=== PATIENT | male | born 1995 | race Caucasian/White ===

== ENCOUNTER 2024-04-27 21:13 | Emergency (ER) | payer OTHER, SELFPAY ==
[2024-04-27 21:21] VITALS: BP 125/74; PULSE 79; RESP 18; TEMP 36.7; O2SAT 98; BMI 30.2
[2024-04-27] MEDS: ONDANSETRON 4 MG/2 ML INJ IV (22:24)
[2024-04-27 22:31] LABS: Add Manual Diff / Slide Review YES; Hematocrit 45.3 % (41-53); Hemoglobin 15.6 g/dL (13.5-17.5); Mean Corpuscular HGB Conc 34.3 % (30-36); Mean Corpuscular Volume 84.5 fL (80-100); Platelet Count 284 X10^3/uL (150-400); Red Blood Cell Count 5.37 X10^6/uL (4.5-5.9); Red Cell Distribution Width 13.1 % (11.6-14.8); White Blood Cell Count 9.5 X10^3/uL (4.5-11.0)
[2024-04-27 22:35] LABS: Alanine Aminotransferase 107 IU/L (<50); Albumin 4.6 g/dL (3.5-5.0); Albumin Globulin Ratio 1.2 (1.0-2.8); Alkaline Phosphatase 76 U/L (38-126); Aspartate Aminotransferase 50 IU/L (17-59); BUN Creatinine Ratio 14.6 (6-22); Bilirubin Total 0.9 mg/dL (0.2-1.3); Blood Urea Nitrogen 15 mg/dL (9-20); Calcium 9.8 mg/dL (8.4-10.2); Carbon Dioxide 25 mmol/L (22-32); Chloride 101 mmol/L (98-107); Estimated Glomerular Filt Rate > 60 mL/min (>60); Globulin 3.7 g/dL (1.7-4.1); Glucose 117 mg/dL (70-100); HEMOLYSIS < 15 (0-50); Lipase 50 U/L (23-300); Potassium 3.9 mmol/L (3.4-5.1); Sodium 135 mmol/L (137-145); Total Protein 8.3 g/dL (6.3-8.2)
[2024-04-27 22:44] LABS: Amorphous Sediment Urine 2+; Bacteria Urine Moderate (10-30); Culture Indicated Urine Cult Not Indicated; Granular Casts Urine 0-1/LPF; Mucus Urine 3+ (Negative); RBC Urine 0-1/HPF (0-5/HPF); Squamous Epithelial Cell Urine 0-1 /HPF (0-5/HPF); Urine Volume 10mL (spun); WBC Urine 0-1/HPF (0-5/HPF)
[2024-04-27 22:54] LABS: Neutrophils Absolute Manual 2565 /uL (3000-5900); RBC Morphology Normal Morphology; Reactive Lymphocytes 1+; Total Cells Counted 100
[2024-04-27 23:30] VITALS: BP 135/76; PULSE 75; RESP 11; O2SAT 96
[2024-04-28] VITALS (10 sets, daily range): BP systolic 112–131; BP diastolic 66–75; PULSE 60–80; RESP 12–16; O2SAT 95–99
--- NOTE | 2024-04-28 01:21 | ED_ITS ---
HPI - Abdominal Pain General Chief Complaint: Abdominal Pain Stated Complaint: Abd Pain/irregular bowel movements/loss of humphrey Time Seen by Provider: 04/27/24 23:32 Source: patient Mode of arrival: Ambulatory History of Present Illness HPI narrative: 29-year-old male with no prior history abdominal surgeries, complains of supraumbilical area abdominal pain since 8:00 p.m. last night, seems to be increasing, some nausea without emesis, no loose stools, no black or red stools. No history of prior peptic ulcers, no prior upper endoscopies. He has not known to have any gallbladder problems. Denies injury trauma new activities. No history of chronic or recent abdominal problems. Last bowel movement yesterday was unremarkable. No close contact to persons with similar symptoms. Related Data Previous Rx's Medication Instructions Recorded omeprazole 20 mg capsule,delayed 20 mg PO DAILY upper abdominal 04/28/24 release pain 30 days #30 caps Allergies Allergy/AdvReac Type Severity Reaction Status Date / Time No Known Drug Allergies Allergy Verified 04/27/24 23:02 Review of Systems Review of Systems Narrative: per HPI Patient History Social History Smoking Status: Former smoker Smoking Status: Former smoker tobacco type: cigarettes alcohol intake frequency: a few times a week Alcohol type: beer Substance Use Type: does not use Exam Narrative Exam Narrative: GENERAL: Well-developed patient, in mild distress. HEAD: Atraumatic. Normocephalic. EYES: Pupils equal round and reactive. Extraocular motions intact. No scleral icterus. No injection or drainage. ENT: Nose without bleeding, purulent drainage. Throat without erythema, tonsillar hypertrophy or exudate. Airway patent. NECK: Trachea midline. Non tender CARDIOVASCULAR: Regular rate and rhythm without murmurs, gallops, or rubs. RESPIRATORY: Clear to auscultation. Breath sounds equal bilaterally. No wheezes, rales, or rhonchi. GASTROINTESTINAL: Abdomen with some epigastric and supraumbilical tenderness, no ventral hernia obvious, no guarding or rebound. No obvious fluid wave. No tenderness right lower quadrant right middle quadrant. No tenderness right upper quadrant. No tenderness left lower quadrant. Bowel tones unremarkable EXTREMITIES: No edema or joint tenderness. BACK: Nontender without deformity or crepitance. No flank tenderness. NEURO: AOx3. SKIN: No rash or erythema of visible areas Initial Vital Signs Initial Vital Signs: Vital Signs Temperature 98.1 F 04/27/24 21:21 Pulse Rate 79 04/27/24 21:21 Respiratory Rate 18 04/27/24 21:21 Blood Pressure 125/74 04/27/24 21:21 Pulse Oximetry 98 04/27/24 21:21 Oxygen Delivery Method Room Air 04/27/24 21:21 Course Orders Ordered: ED Orders 04/27/24 22:15 Complete Blood Count AUTO DIFF Stat Comprehensive Metabolic Panel Stat Lipase Stat 04/27/24 22:25 Urine Microscopic Stat 04/28/24 01:29 CT abdomen pelvis w con Stat Discontinued Medications Famotidine (Famotidine 20 Mg/2 Ml Vial) 20 mg IV NOW JORJE Last Admin: 04/28/24 01:33 Dose: 20 mg Documented By: PATTI Ondansetron HCl (Ondansetron 4 Mg/2 Ml Inj) 4 mg IV NOW PRN PRN Reason: Nausea And Vomiting Last Admin: 04/27/24 22:24 Dose: 4 mg Documented By: SURY Ondansetron HCl (Ondansetron 4 Mg Odt) 4 mg PO NOW PRN PRN Reason: Nausea And Vomiting Vital Signs Vital signs: Vital Signs - 8 hr 04/27/24 23:30 04/28/24 00:00 04/28/24 00:30 Pulse Rate 75 77 74 Respiratory Rate 11 L 12 16 Blood Pressure 135/76 130/75 131/74 Pulse Oximetry 96 99 99 Oxygen Delivery Method Room Air Room Air Room Air 04/28/24 01:00 04/28/24 01:30 04/28/24 02:00 Pulse Rate 72 74 80 Respiratory Rate 16 13 15 Blood Pressure 130/72 131/74 130/74 Pulse Oximetry 95 98 97 Oxygen Delivery Method Room Air Room Air Room Air 04/28/24 02:30 04/28/24 03:00 04/28/24 03:30 Pulse Rate 70 72 62 Respiratory Rate 13 13 Blood Pressure 126/74 118/66 114/71 Pulse Oximetry 98 97 96 Oxygen Delivery Method Room Air Room Air 04/28/24 04:00 04/28/24 04:30 Pulse Rate 60 65 Respiratory Rate 12 16 Blood Pressure 115/71 112/68 Pulse Oximetry 96 96 Oxygen Delivery Method Room Air Room Air MDM - Abdominal Pain Lab Data Attestation: I reviewed the patient's lab results. 04/27/24 22:15 04/27/24 22:15 Labs: Lab Results 04/27/24 04/27/24 Range/Units 22:15 22:25 WBC 9.5 (4.5-11.0) X10^3/uL RBC 5.37 (4.5-5.9) X10^6/uL Hgb 15.6 (13.5-17.5) g/dL Hct 45.3 (41-53) % MCV 84.5 (80-100) fL MCH 29.0 (26-34) PG MCHC 34.3 (30-36) % RDW 13.1 (11.6-14.8) % Plt Count 284 (150-400) X10^3/uL Neut % (Auto) Not Reportable Lymph % (Auto) Not Reportable [place] % (Auto) Not Reportable Eos % (Auto) Not Reportable Baso % (Auto) Not Reportable Lymph # (Auto) Not Reportable [place] # (Auto) Not Reportable Baso # (Auto) Not Reportable Total Counted 100 Seg Neutrophils % 27.0 L (38-70) % Lymphocytes % (Manual) 67.0 H (25-45) % Monocytes % (Manual) 6.0 (2-11) % Neutrophils # (Manual) 2565 L (6132-2924) /uL Reactive Lymphocytes 1+ H RBC Morphology Normal morphology Sodium 135 L (137-145) mmol/L Potassium 3.9 (3.4-5.1) mmol/L Chloride 101 (98-107) mmol/L Carbon Dioxide 25 (22-32) mmol/L BUN 15 (9-20) mg/dL Creatinine 1.03 (0.66-1.25) mg/dL Estimated GFR > 60 (>60) mL/min BUN/Creatinine Ratio 14.6 (6-22) Glucose 117 H (70-100) mg/dL Calcium 9.8 (8.4-10.2) mg/dL Total Bilirubin 0.9 (0.2-1.3) mg/dL AST 50 (17-59) IU/L ALT 107 H (<50) IU/L Alkaline Phosphatase 76 (38-126) U/L Total Protein 8.3 H (6.3-8.2) g/dL Albumin 4.6 (3.5-5.0) g/dL Globulin 3.7 (1.7-4.1) g/dL Albumin/Globulin Ratio 1.2 (1.0-2.8) Lipase 50 (23-300) U/L Urine RBC 0-1/hpf (0-5/HPF) Urine WBC 0-1/hpf (0-5/HPF) Ur Squamous Epith Cells 0-1 /hpf (0-5/HPF) Amorphous Sediment 2+ Urine Bacteria Moderate (10-30) H (None) Granular Casts 0-1/lpf (None) Urine Mucus 3+ H (Negative) Ur Culture Indicated? Cult not indicated Vol Urine Centrifuged 10ml (spun) Point of care testing: Urine Dip Bedside Urine Glucose Negative Bedside Urine Bilirubin - Negative Bedside Urine Ketone +/- 5 Urine Specific [place] 1.025 Bedside Urine Occult Blood - Negative Bedside Urine pH 6.0 Bedside Urine Protein +/- 15 Bedside Urine Urobilinogen - Negative Bedside Urine Nitrite - Negative Bedside Urine Leukocytes - Negative Esterase Imaging Data CT scan - abdomen/pelvis: Radiologist's Impression: [address] [address] [address] Scan Report Signed Patient: Cody Limon MR#: [id number] : 1995 Acct:[id number] Age/Sex: 29 / M Date of Service: 04/28/24 Loc: ED Accession Number: [id number] Procedure: CT abdomen pelvis w con Ordering Provider: Jacob Jean MD PROCEDURE: CT ABDOMEN PELVIS W CON INDICATIONS: abd pain TECHNIQUE: After the administration of intravenous contrast, axial sections acquired from the lung bases to the pubic symphysis. Coronal and sagittal reformats were performed. For radiation dose reduction, the following was used: automated exposure control, adjustment of mA and/or kV according to patient size. COMPARISON: None. FINDINGS: Image quality: Diagnostic. Lower Chest: No significant findings. ABDOMEN: Liver: No solid mass. Gallbladder: No radiopaque gallstones or wall thickening. Biliary ducts: No biliary dilation. Pancreas: No ductal dilation. Spleen: Size is within normal limits. Adrenal Glands: No adrenal nodules. Kidneys and Ureters: No hydronephrosis. No solid mass. No complex renal cystic lesion which requires follow up. Stomach and Bowel: Normal colonic caliber, without significant wall thickening. There is abnormal small bowel dilatation through the upper, mid and lower abdomen/pelvis. Etiology is not identified. Peritoneum: Slight the posterior pelvic abnormal intraperitoneal fluid. No free air. Ventral Wall: No significant ventral hernia. Abdominal Nodes: No retroperitoneal or mesenteric adenopathy by size criteria. Vessels: Aorta and inferior vena cava are normal in size. PELVIS: Pelvic Organs: Unremarkable. Bladder: No bladder wall thickening, accounting for underdistention. Pelvic Nodes: No enlarged lymph nodes. Miscellaneous: No inguinal hernias are seen. Bones: No aggressive osseous abnormality. IMPRESSION: Abnormal moderate small bowel dilatation through the abdomen and pelvis. Intussusception or volvulus is not seen nor is a mass identified. In such circumstances at acquired or congenital adhesion is the most common etiology. No pneumatosis involving the small bowel wall is found. Slight free fluid deep within the posterior pelvis. Dictated by: Kleber Molina M.D. on 04/28/2024 at 1:58 Approved by: Kleber Molina M.D. on 04/28/2024 at 2:02 MDM Narrative Medical decision making narrative: 29-year-old male with supraumbilical and epigastric abdominal pain, some tenderness on exam, afebrile, sirs screen negative. Screening labs normal CBC white blood cell count, hemoglobin, platelets. CMP also unremarkable, LFTs normal, lipase normal. Urinalysis shows some bacteria but no inflammatory change. We discussed trial of antacids and outpatient follow up, versus imaging here. Patient prefers have imaging here. CT abdomen and pelvis with IV contrast ordered. IV Pepcid. CT abdomen and pelvis. Impression: ?Abnormal moderate small bowel dilatation through the abdomen and pelvis. Intussusception or volvulus is not seen nor is a mass identified. In such circumstances acquired or congenital adhesion is most common etiology. No pneumatosis involving the small bowel is found. Slight free fluid deep within the posterior pelvis. ? See radiology report Patient on repeat exam seemed to have less discomfort, feels better, was given IV Pepcid before. We will consult surgery Case discussed with Dr. Cherry surgery on-call, advises trial of outpatient observation at this point, we will discharge on omeprazole antacid, return precautions discussed, home with family. Patient given a copy of the CT report. Prescription for omeprazole sent to his pharmacy. Critical Care Time Critical Care Time Critical Care Time: Yes Total Critical Care Time: 31 Attestation: The high probability of a clinically significant, sudden or life threatening deterioration of the [gastrointestinal, genitourinary, abdominopelvic] system(s) required my full and direct attention, intervention and personal management. The aggregate critical care time was [31] minutes. This time is in addition to time spent performing reported procedures but includes the following: [x] Data Review and interpretation [x] Patient assessment and monitoring of vital signs [x] Documentation [x] Medication orders and management Discharge Plan Departure Patient Disposition: Home Clinical Impression: Abdominal pain Instructions: DI for Abdominal Pain-Adult Activity Restrictions/Additional Instructions: Central upper abdominal discomfort, unremarkable screening labs, after discussion you did prefer imaging study. CT abdomen and pelvis showed prominence of small bowel generalized, without any specific transition point to suggest bowel obstruction, consider congenital adhesion, see radiologist's report, copy provided. You seemed to feel better during the emergency course, IV Pepcid antacid was given. By location of symptoms could consider gastritis and peptic ulcer and esophagitis acid related problems. Consider course of omeprazole. Case was discussed with on-call surgery Dr. Cherry, who thought you can go home for now, return if things change or if they worsen. Consider seeing Dr. Cherry as an outpatient, could consider upper endoscopy evaluation for your symptoms. Return earlier if any change worsening symptoms or any concerns prior, as this could be an early nonspecific finding in might evolve into a more specific small bowel diagnosis, though it might be an incidental finding or Radiology over reading. Prescriptions: New omeprazole 20 mg capsule,delayed release(DR/EC) 20 mg PO DAILY 30 Days Qty: 30 0RF Referrals: Melvin Cherry MD [Physician] - Provider,Richar AUGUSTIN [Primary Care Provider] - Stand Alone Forms: Patient Portal/API
--- NOTE | 2024-04-28 01:29 | DI.CT.S_ITS ---
PROCEDURE: CT ABDOMEN PELVIS W CON INDICATIONS: abd pain TECHNIQUE: After the administration of intravenous contrast, axial sections acquired from the lung bases to the pubic symphysis. Coronal and sagittal reformats were performed. For radiation dose reduction, the following was used: automated exposure control, adjustment of mA and/or kV according to patient size. COMPARISON: None. FINDINGS: Image quality: Diagnostic. Lower Chest: No significant findings. ABDOMEN: Liver: No solid mass. Gallbladder: No radiopaque gallstones or wall thickening. Biliary ducts: No biliary dilation. Pancreas: No ductal dilation. Spleen: Size is within normal limits. Adrenal Glands: No adrenal nodules. Kidneys and Ureters: No hydronephrosis. No solid mass. No complex renal cystic lesion which requires follow up. Stomach and Bowel: Normal colonic caliber, without significant wall thickening. There is abnormal small bowel dilatation through the upper, mid and lower abdomen/pelvis. Etiology is not identified. Peritoneum: Slight the posterior pelvic abnormal intraperitoneal fluid. No free air. Ventral Wall: No significant ventral hernia. Abdominal Nodes: No retroperitoneal or mesenteric adenopathy by size criteria. Vessels: Aorta and inferior vena cava are normal in size. PELVIS: Pelvic Organs: Unremarkable. Bladder: No bladder wall thickening, accounting for underdistention. Pelvic Nodes: No enlarged lymph nodes. Miscellaneous: No inguinal hernias are seen. Bones: No aggressive osseous abnormality. IMPRESSION: Abnormal moderate small bowel dilatation through the abdomen and pelvis. Intussusception or volvulus is not seen nor is a mass identified. In such circumstances at acquired or congenital adhesion is the most common etiology. No pneumatosis involving the small bowel wall is found. Slight free fluid deep within the posterior pelvis. Dictated by: Kleber Molina M.D. on 04/28/2024 at 1:58 Approved by: Kleber Molina M.D. on 04/28/2024 at 2:02
[2024-04-28] MEDS: FAMOTIDINE 20 MG/2 ML VIAL IV (01:33)
== END 2024-04-28 05:04 | disposition home or self-care (01) ==
PROVIDERS: Emergency Provider Emergency Medicine
DX: R10.13 Epigastric pain (principal)
CPT/HCPCS: 36415; 74177; 80053; 81003; 81015; 83690; 85007; 85025; 96374; 96375; 99284; J2405; Q9967

== ENCOUNTER 2024-04-29 00:51 | Emergency (ER) | payer OTHER, SELFPAY ==
[2024-04-29] VITALS (11 sets, daily range): BP systolic 109–132; BP diastolic 64–77; PULSE 77–96; RESP 16–18; O2SAT 91–98; BMI 31.0
[2024-04-29] MEDS: ONDANSETRON 4 MG ODT PO (01:12)
--- NOTE | 2024-04-29 02:18 | ED_ITS ---
HPI - Abdominal Pain General Chief Complaint: Abdominal Pain Stated Complaint: v/d abd pain Time Seen by Provider: 04/29/24 01:00 Source: patient Mode of arrival: Ambulatory History of Present Illness HPI narrative: 29-year-old male with persisting abdominal pain, seen here by me yesterday, workup then included CT abdomen and pelvis imaging that showed dilated small bowel loop without any transition point, congenital adhesion versus other, patient had improving symptoms at that time and was sent home after discussion with General surgery, expectant management. Patient subsequently has had crampy abdominal pain, and loose stooling. No black or red stools. Some nausea without emesis. No other new symptoms. Related Data Previous Rx's Medication Instructions Recorded omeprazole 20 mg capsule,delayed 20 mg PO DAILY upper abdominal 04/28/24 release pain 30 days #30 caps dicyclomine 10 mg capsule 10 mg PO TID #6 caps 04/29/24 loperamide 2 mg capsule 2 mg PO Q6H PRN loose stool #10 04/29/24 caps Allergies Allergy/AdvReac Type Severity Reaction Status Date / Time No Known Drug Allergies Allergy Verified 04/27/24 23:02 Review of Systems Review of Systems Narrative: per HPI Patient History Social History Smoking Status: Former smoker Smoking Status: Former smoker tobacco type: cigarettes alcohol intake frequency: a few times a week Alcohol type: beer Substance Use Type: does not use Exam Narrative Exam Narrative: GENERAL: Well-developed patient, in mild distress. HEAD: Atraumatic. Normocephalic. EYES: Pupils equal round and reactive. Extraocular motions intact. No scleral icterus. No injection or drainage. ENT: Nose without bleeding, purulent drainage. Throat without erythema, tonsillar hypertrophy or exudate. Airway patent. NECK: Trachea midline. Non tender CARDIOVASCULAR: Regular rate and rhythm without murmurs, gallops, or rubs. RESPIRATORY: Clear to auscultation. Breath sounds equal bilaterally. No wheezes, rales, or rhonchi. GASTROINTESTINAL: Abdomen soft, non-tender, nondistended. EXTREMITIES: No edema or joint tenderness. BACK: Nontender without deformity or crepitance. No flank tenderness. NEURO: AOx3. SKIN: No rash or erythema of visible areas Initial Vital Signs Initial Vital Signs: Vital Signs Pulse Rate 81 04/29/24 01:01 Respiratory Rate 16 04/29/24 01:01 Blood Pressure 128/77 07/22/24 01:01 Pulse Oximetry 98 04/29/24 01:01 Oxygen Delivery Method Room Air 04/29/24 01:01 Course Orders Ordered: ED Orders 04/29/24 02:40 Complete Blood Count AUTO DIFF Stat Comprehensive Metabolic Panel Stat Lipase Stat 04/29/24 03:16 CT abdomen pelvis w con Stat 04/29/24 03:58 GI Panel (Film Array) Stat Ictotest Urine Stat Urinalysis and Microscopic Stat Discontinued Medications Al Hydrox/Mg Hydrox/Simethicone 20 ml/ Lidocaine HCl 15 ml 0 ml PO NOW ONE Stop: 04/29/24 02:33 Last Admin: 04/29/24 03:37 Dose: 35 ml Documented By: Dicyclomine HCl (Dicyclomine 10 Mg Capsule) 20 mg PO NOW ONE Stop: 04/29/24 06:10 Last Admin: 04/29/24 06:34 Dose: 20 mg Sodium Chloride (Normal Saline 0.9%) 1,000 mls @ 1,000 mls/hr IV BOLUS ONE Stop: 04/29/24 03:19 Last Admin: 04/29/24 03:37 Dose: 1,000 mls/hr Documented By: Sodium Chloride (Normal Saline 0.9%) 1,000 mls @ 1,000 mls/hr IV BOLUS ONE Stop: 04/29/24 05:56 Last Infusion: 04/29/24 06:10 Dose: Infused Loperamide HCl (Loperamide 2 Mg Capsule) 2 mg PO NOW ONE Stop: 04/29/24 06:26 Last Admin: 04/29/24 06:47 Dose: 2 mg Ondansetron HCl (Ondansetron 4 Mg Odt) 4 mg PO NOW PRN PRN Reason: Nausea And Vomiting Last Admin: 04/29/24 01:12 Dose: 4 mg Documented By: JOSE Vital Signs Vital signs: Vital Signs - 8 hr 04/29/24 01:01 04/29/24 02:05 04/29/24 02:05 Pulse Rate 81 88 Respiratory Rate 16 Blood Pressure 128/77 132/76 Pulse Oximetry 98 98 Oxygen Delivery Method Room Air 04/29/24 02:30 04/29/24 02:38 04/29/24 02:38 Pulse Rate 81 84 Respiratory Rate Blood Pressure 114/65 Pulse Oximetry 98 95 Oxygen Delivery Method 04/29/24 03:00 04/29/24 03:00 04/29/24 03:30 Pulse Rate 77 79 Respiratory Rate Blood Pressure 109/64 Pulse Oximetry 97 98 Oxygen Delivery Method Room Air Room Air 04/29/24 03:30 04/29/24 04:00 04/29/24 04:00 Pulse Rate 90 Respiratory Rate Blood Pressure 113/67 120/70 Pulse Oximetry 97 Oxygen Delivery Method 04/29/24 04:30 04/29/24 04:30 04/29/24 06:36 Pulse Rate 83 91 H Respiratory Rate 18 Blood Pressure 114/66 Pulse Oximetry 97 91 Oxygen Delivery Method 04/29/24 06:37 04/29/24 06:37 04/29/24 06:49 Pulse Rate 84 96 H Respiratory Rate 16 Blood Pressure 112/65 112/65 Pulse Oximetry 98 98 Oxygen Delivery Method Room Air Room Air MDM - Abdominal Pain Lab Data Attestation: I reviewed the patient's lab results. 04/29/24 02:40 04/29/24 02:40 Labs: Lab Results 04/29/24 04/29/24 Range/Units 02:40 03:58 WBC 8.7 (4.5-11.0) X10^3/uL RBC 5.15 (4.5-5.9) X10^6/uL Hgb 15.0 (13.5-17.5) g/dL Hct 43.4 (41-53) % MCV 84.3 (80-100) fL MCH 29.1 (26-34) PG MCHC 34.6 (30-36) % RDW 13.4 (11.6-14.8) % Plt Count 269 (150-400) X10^3/uL Neut % (Auto) 64.6 (50-75) % Lymph % (Auto) 27.4 (25-40) % [place] % (Auto) 7.6 (3-14) % Eos % (Auto) 0.1 L (2-4) % Baso % (Auto) 0.3 (0-2) % Neut # (Auto) 5600 (8205-5489) /uL Lymph # (Auto) 2400 (5978-5763) /uL [place] # (Auto) 700 (0-900) /uL Eos # (Auto) 0 (0-450) /uL Baso # (Auto) 0 (0-100) /uL Sodium 136 L (137-145) mmol/L Potassium 3.9 (3.4-5.1) mmol/L Chloride 104 (98-107) mmol/L Carbon Dioxide 24 (22-32) mmol/L BUN 19 (9-20) mg/dL Creatinine 0.90 (0.66-1.25) mg/dL Estimated GFR > 60 (>60) mL/min BUN/Creatinine Ratio 21.1 (6-22) Glucose 111 H (70-100) mg/dL Calcium 9.0 (8.4-10.2) mg/dL Total Bilirubin 1.0 (0.2-1.3) mg/dL AST 44 (17-59) IU/L ALT 87 H (<50) IU/L Alkaline Phosphatase 64 (38-126) U/L Total Protein 7.7 (6.3-8.2) g/dL Albumin 4.4 (3.5-5.0) g/dL Globulin 3.3 (1.7-4.1) g/dL Albumin/Globulin Ratio 1.3 (1.0-2.8) Lipase 58 (23-300) U/L Urine Color Dark yellow Urine Appearance Clear Urine pH 6.0 (4.5-8.0) Ur Specific [place] 1.020 (1.000-1.035) Urine Protein Trace H (Negative) Urine Glucose (UA) Negative (Negative) g/dL Urine Ketones 3+ H (NEGATIVE) Urine Occult Blood Negative (Negative) Urine Nitrate Negative (Negative) Urine Bilirubin 1+ H (NEGATIVE) Ur Bilirubin Confirm Negative (Negative) Urine Urobilinogen 1.0 (0.2) E.U./dL Ur Leukocyte Esterase Negative (NEGATIVE) Urine RBC 0-1/hpf (0-5/HPF) Urine WBC None seen (0-5/HPF) Ur Squamous Epith Cells 0-1 /hpf (0-5/HPF) Amorphous Sediment 1+ Urine Bacteria None seen (None) Hyaline Casts 0-1/lpf (None) Granular Casts 0-1/lpf (None) Urine Mucus 3+ H (Negative) Ur Culture Indicated? Cult not indicated Vol Urine Centrifuged 10ml (spun) Stl C. cayetanensis PCR Not detected (Not Detect) Stool Rotavirus (PCR) Detected (Not Detect) Stool Adenovirus (PCR) Not detected (Not Detect) Stool Astrovirus (PCR) Not detected (Not Detect) Stool Cryptosporidium PCR Not detected (Not Detect) Stl E.coli Shiga Tox PCR Not detected (Not Detect) St Sh/Enteroin Ecoli PCR Not detected (Not Detect) Stl Enterotoxigenic E PCR Not detected (Not Detect) Stool EPEC (PCR) Not detected (Not Detect) Stl E. histolytica PCR Not detected (Not Detect) Stool Giardia Lamblia PCR Not detected (Not Detect) Stool Sapovirus (PCR) Not detected (Not Detect) Stl P. shigelloides PCR Not detected (Not Detect) St Y.enterocolitica PCR Not detected (Not Detect) Stool Vibrio (PCR) Not detected (Not Detect) Stl Vibrio cholerae PCR Not detected (Not Detect) Stl Enteroaggr Ecoli PCR Not detected (Not Detect) Stl Norovirus GI/GII PCR Not detected (Not Detect) Campylobacter (PCR) Not detected (Not Detect) C. difficile Tox (PCR) Not detected (Not Detect) Salmonella (PCR) Not detected (Not Detect) MDM Narrative Medical decision making narrative: 29-year-old male seen yesterday for abdominal pain, CT scan showed dilated small bowel loop without any specific transition point, with improving symptoms, was sent home after consultation by phone with General surgery. He has increased symptoms again, also now with loose stools. Possible enteritis. Some tenderness on exam, afebrile, sirs screen negative, nonrigid abdomen. We will send repeat labs. Stool study if he produces a specimen for evaluation by lab. CT abdomen and pelvis interim comparison study ordered. He declines pain medications when offered. CT abdomen and pelvis with IV contrast. Impressions: ?Mild distention up to 36 mm of some of the lower abdominal ileal loops without definite transition point. No evidence of bowel wall thickening or surrounding fat stranding. Fluid contents in portions of the nondistended small and large bowel. Fluid contents in the distended (measuring up to 6 cm in width) rectum. Query diarrhea. Small simple pelvic ascites. Dense urinary bladder contents with an average Hounsfield unit of 51, UA correlation recommended. ? Teleradiology report Stool study positive for rotavirus, otherwise negative. P.o. loperamide, p.o. Bentyl. Prescription for both sent to his pharmacy. Encouraged to drink plenty of fluids. Recheck with regular provider in the next couple of days if not improving. Return precautions discussed. Home with family. Critical Care Time Critical Care Time Critical Care Time: Yes Total Critical Care Time: 31 Attestation: The high probability of a clinically significant, sudden or life threatening deterioration of the [abdominopelvic, gastrointestinal] system(s) required my full and direct attention, intervention and personal management. The aggregate critical care time was [31] minutes. This time is in addition to time spent performing reported procedures but includes the following: [x] Data Review and interpretation [x] Patient assessment and monitoring of vital signs [x] Documentation [x] Medication orders and management Discharge Plan Departure Patient Disposition: Home Clinical Impression: Abdominal pain, Diarrhea, Enteritis due to Rotavirus Instructions: DI for Viral Gastroenteritis -- Adult Activity Restrictions/Additional Instructions: Abdominal cramping with loose stools. Recent evaluation yesterday with CT scanning showing some concern for dilated small bowel, without obvious obstruction changes, normal variant versus early other process, sent home after discussion with General surgery. Continued abdominal cramping, now with interval predominance of loose stooling, no black or red coloration. Afebrile on triage repeat visit today. Mild diffuse tenderness on examination with active bowel tones. Suspected enteritis. CT abdomen and pelvis imaging tests today showed dilated small bowel described similarly, no transition point of obstruction, some fluid levels in the small bowel and in the rectal vault, consistent with diarrhea. Stool specimen was in fact obtained while in the emergency department this time, sent to laboratory, positive for rotavirus, negative for other pathogens tested. Likely you have viral enteritis from rotavirus infection. Dilated small bowel may just be a normal variant while this infection is present, or could be inflamed to some degree because of viral illness. Further treatment for now as an outpatient. Consider use of loperamide to slow down diarrheal illness, 1st dose in the emergency department given. Also consider antispasmodic Bentyl, which can help with crampy abdominal discomfort due to viral illness symptoms, 1st dose in the emergency department, further doses sent to your pharmacy. Recheck symptoms with your regular doctor in the next couple of days. Return to this/nearest emergency department for any change worsening symptoms or any concerns prior Prescriptions: New loperamide 2 mg capsule 2 mg PO Q6H PRN (Reason: loose stool) Qty: 10 0RF dicyclomine 10 mg capsule 10 mg PO TID Qty: 6 0RF No Action omeprazole 20 mg capsule,delayed release(DR/EC) 20 mg PO DAILY 30 Days Qty: 30 0RF Referrals: ProviderRichar [Primary Care Provider] - Stand Alone Forms: Patient Portal/API
--- NOTE | 2024-04-29 02:54 | PC.NURSE ---
Pt lying back in gurney. Appears in no acute distress. Reports feeling nauseated. No emesis noted.
[2024-04-29 03:01] LABS: Add Manual Diff / Slide Review NO; Basophils Absolute Auto 0 /uL (0-100); Basophils Percent Auto 0.3 % (0-2); Eosinophils Absolute Auto 0 /uL (0-450); Eosinophils Percent Auto 0.1 % (2-4); Hematocrit 43.4 % (41-53); Lymphocytes Absolute Auto 2400 /uL (1100-4500); Lymphocytes Percent Auto 27.4 % (25-40); Mean Corpuscular HGB Conc 34.6 % (30-36); Mean Corpuscular Hemoglobin 29.1 PG (26-34); Mean Corpuscular Volume 84.3 fL (80-100); Monocytes Absolute Auto 700 /uL (0-900); Monocytes Percent Auto 7.6 % (3-14); Neutrophils Absolute Auto 5600 /uL (1500-7000); Neutrophils Percent Auto 64.6 % (50-75); Platelet Count 269 X10^3/uL (150-400); Red Blood Cell Count 5.15 X10^6/uL (4.5-5.9); Red Cell Distribution Width 13.4 % (11.6-14.8); White Blood Cell Count 8.7 X10^3/uL (4.5-11.0)
[2024-04-29 03:08] LABS: Alanine Aminotransferase 87 IU/L (<50); Albumin 4.4 g/dL (3.5-5.0); Albumin Globulin Ratio 1.3 (1.0-2.8); Alkaline Phosphatase 64 U/L (38-126); Aspartate Aminotransferase 44 IU/L (17-59); BUN Creatinine Ratio 21.1 (6-22); Blood Urea Nitrogen 19 mg/dL (9-20); Carbon Dioxide 24 mmol/L (22-32); Chloride 104 mmol/L (98-107); Estimated Glomerular Filt Rate > 60 mL/min (>60); Globulin 3.3 g/dL (1.7-4.1); Glucose 111 mg/dL (70-100); HEMOLYSIS 24 (0-50); Lipase 58 U/L (23-300); Potassium 3.9 mmol/L (3.4-5.1); Sodium 136 mmol/L (137-145); Total Protein 7.7 g/dL (6.3-8.2)
--- NOTE | 2024-04-29 03:16 | DI.CT.S_ITS ---
PROCEDURE: CT ABDOMEN PELVIS W CON INDICATIONS: abd pain, compare to study yesterday TECHNIQUE: After the administration of intravenous contrast, axial sections acquired from the lung bases to the pubic symphysis. Coronal and sagittal reformats were performed. For radiation dose reduction, the following was used: automated exposure control, adjustment of mA and/or kV according to patient size. COMPARISON: [facility], CT, CT ABDOMEN PELVIS W CON, 04/28/2024, 1:48. FINDINGS: Image quality: Diagnostic. Lower Chest: No significant findings. ABDOMEN: Liver: No solid mass. Gallbladder: No radiopaque gallstones or wall thickening. Biliary ducts: No biliary dilation. Pancreas: No ductal dilation. Spleen: Size is mildly enlarged, unchanged. Adrenal Glands: No adrenal nodules. Kidneys and Ureters: No hydronephrosis. No solid mass. No complex renal cystic lesion which requires follow up. Stomach and Bowel: Dilated fluid-filled loops of small bowel are present with greatest dimension measuring 3.5-3.7 cm. This is compared to approximately 3.4 cm on prior exam. No definitive transition point is identified. Peritoneum: No abnormal intraperitoneal fluid. No free air. Ventral Wall: No significant ventral hernia. Abdominal Nodes: No retroperitoneal or mesenteric adenopathy by size criteria. Vessels: Aorta and inferior vena cava are normal in size. PELVIS: Pelvic Organs: Unremarkable. Bladder: No bladder wall thickening, accounting for underdistention. Hounsfield units of urinary contents measures approximately 50. Pelvic Nodes: No enlarged lymph nodes. Miscellaneous: No inguinal hernias are seen. Bones: No aggressive osseous abnormality. IMPRESSION: Persistent partial small bowel obstruction minimally more prominent as above. No definitive transition point. Dictated by: Carmenza Davis M.D. on 04/29/2024 at 12:10 Approved by: Carmenza Davis M.D. on 04/29/2024 at 12:12
[2024-04-29] MEDS: SODIUM CHLORIDE 0.9% 1,000 ML 1000 ML IV ×2 (03:37→05:06)
[2024-04-29] MEDS: MAG HYDROX/ALUMINUM/SIMETH SUS 20 ML, LIDOCAINE VISCOUS 2% 15 ML PO (03:37)
[2024-04-29 04:28] LABS: Appearance Urine UA CLEAR; Bilirubin Urine UA 1+ (NEGATIVE); Glucose Urine UA NEGATIVE (Negative); Ketones Urine UA 3+ (NEGATIVE); Leukocyte Esterase Urine UA NEGATIVE (NEGATIVE); Nitrite Urine UA NEGATIVE (Negative); Occult Blood Urine UA NEGATIVE (Negative); Protein Urine UA TRACE (Negative)
[2024-04-29 04:39] LABS: Color Urine UA Dark Yellow
[2024-04-29 04:43] LABS: Ictotest Urine Negative (Negative); RBC Urine 0-1/HPF (0-5/HPF); Urine Volume 10mL (spun); WBC Urine None Seen (0-5/HPF)
[2024-04-29 04:44] LABS: Amorphous Sediment Urine 1+; Bacteria Urine None Seen; Granular Casts Urine 0-1/LPF; Hyaline Casts Urine 0-1/LPF; Mucus Urine 3+ (Negative); Squamous Epithelial Cell Urine 0-1 /HPF (0-5/HPF)
[2024-04-29 04:45] LABS: Culture Indicated Urine Cult Not Indicated
[2024-04-29 05:45] LABS: Adenovirus F 40/41 Not Detected (Not Detect); Astrovirus Not Detected (Not Detect); Campylobacter Not Detected (Not Detect); Clostridium difficile toxin AB Not Detected (Not Detect); Cryptosporidium Not Detected (Not Detect); Cyclospora cayetanensis Not Detected (Not Detect); Entamoeba histolytica Not Detected (Not Detect); Enteroaggregative E.coli Not Detected (Not Detect); Enteropathogenic E.coli Not Detected (Not Detect); Enterotoxigenic E.coli It/st Not Detected (Not Detect); Giardia lamblia Not Detected (Not Detect); Norovirus GI/GII Not Detected (Not Detect); Plesiomonsa shigelloides Not Detected (Not Detect); Rotavirus A Detected (Not Detect); Salmonella Not Detected (Not Detect); Sapovirus Not Detected (Not Detect); Shiga-like toxin-prod E.coli Not Detected (Not Detect); Shigella/Enteroinvasive E.coli Not Detected (Not Detect); Vibrio Not Detected (Not Detect); Vibrio cholerae Not Detected (Not Detect); Yersinia enterocolitica Not Detected (Not Detect)
[2024-04-29] MEDS: DICYCLOMINE 10 MG CAPSULE 20 MG PO (06:34)
[2024-04-29] MEDS: LOPERAMIDE 2 MG CAPSULE PO (06:47)
== END 2024-04-29 06:50 | disposition home or self-care (01) ==
PROVIDERS: Emergency Provider Emergency Medicine
DX: A08.0 Rotaviral enteritis (principal)
CPT/HCPCS: 36415; 74177; 80053; 81001; 83690; 85025; 87507; 99284; Q9967